=== PATIENT | male | born 2000 | race Caucasian/White ===

== ENCOUNTER 2023-10-25 13:35 | Emergency (ER) | payer SELFPAY ==
[~2023-10-25] VITALS: Ht 175.3 cm; Wt 72.7 kg
[2023-10-25 13:46] VITALS: TEMP 98.5
[2023-10-25 15:37] VITALS: BP 149/84; PULSE 68
== END 2023-10-25 15:37 | disposition home or self-care (01) ==
LOC: COL.ER 13:35
DX: S06.0XAA Concussion with loss of consciousness status unknown, initial encounter (principal); F17.210 Nicotine dependence, cigarettes, uncomplicated; V43.62XA Car passenger injured in collision with other type car in traffic accident, initial encounter; Y92.410 Unspecified street and highway as the place of occurrence of the external cause